=== PATIENT | male | born 1990 | race Caucasian/White ===

== ENCOUNTER 2019-11-30 15:56 | Emergency (ER) | payer OTHER, SELFPAY ==
--- NOTE | ~2019-11-30 | XR_ITS ---
EXAMINATION: XR finger 5th LT min 2V INDICATION: Left fifth finger pain, initial encounter TECHNIQUE: Three views of the left fifth finger are obtained. COMPARISON: None available FINDINGS: There is subtle irregularity at the palmar base of the fifth middle phalanx. Subtle heterot opic ossification projects at the palmar aspect of the head of the fifth proximal phalanx. There is m ild dorsal subluxation of the fifth middle phalanx with respect to the proximal phalanx. A subtle swa n-neck deformity is noted. There is soft tissue swelling of the fifth finger IMPRESSION: 1. Findings consistent with volar plate avulsion fracture of the fifth middle phalanx. Reviewed, dictated and finalized at location A. IMPRESSION: 1. Findings consistent with volar plate avulsion fracture of the fifth middle p halanx.
[2019-11-30 16:02] VITALS: BP 156/91; PULSE 105; RESP 18; TEMP 36.1; O2SAT 98
--- NOTE | 2019-11-30 16:20 | ED.UPPEXIN ---
HPI - Extremity Injury (Upper) General Chief Complaint: Extremity Injury, Upper Stated Complaint: left pinky injury Time Seen by Provider: 11/30/19 16:06 Source: patient History of Present Illness HPI narrative: Left fifth finger deformity while trying to manage a tire at work. Patient denies other injuries. Related Data Home Medications Medication Instructions Recorded Confirmed No Home Medications 11/30/19 11/30/19 Allergies Allergy/AdvReac Type Severity Reaction Status Date / Time No Known Allergies Allergy Verified 11/30/19 16:01 Review of Systems Review of Systems: Narrative: CONSTITUTIONAL: Denies fever, chills, or sweats. EYES: Denies visual changes, redness, or discharge. ENT: Denies rhinorrhea, congestion, sore throat, or otalgia. CARDIOVASCULAR: Denies chest pain, palpitations, or edema. RESPIRATORY: Denies cough or dyspnea. GASTROINTESTINAL: Denies abdominal pain, nausea, vomiting, or diarrhea. GENITOURINARY: Denies dysuria or hematuria. SKIN: Denies rash or itching. MUSCULOSKELETAL: Denies back pain, joint pain, or myalgia. NEUROLOGIC: Denies headache, numbness, or weakness. PSYCHIATRIC: Denies anxiety or depression. PMFSH Social History Social History Gender identity (if verbalized by the patient): Male Exam Narrative: Exam Narrative: General appearance: Well-developed, well-nourished Skin: Normal color Head: Normocephalic, nontraumatic Chest and respiratory: Airway patent, no respiratory distress, no accessory muscle use Heart: Regular rate/rhythm Vascular: Normal peripheral pulses, normal capillary refill. Musculoskeletal: Normal range of motion, nontender back, left fifth finger showed deformity, looks like dislocation. I was able to reduce it in 10 seconds. Neurologic: Alert and oriented ?3, [employer] is normal as tested, no gross motor deficit Course Course Emergency Course: Improved Vital Signs Vital signs: Vital Signs Temperature 36.1 C L 11/30/19 16:02 Pulse Rate 105 H 11/30/19 16:02 Respiratory Rate 18 11/30/19 16:02 Blood Pressure 156/91 H 11/30/19 16:02 Pulse Oximetry 98 11/30/19 16:02 Temperature 36.1 C L 11/30/19 16:02 Pulse Rate 105 H 11/30/19 16:02 Respiratory Rate 18 11/30/19 16:02 Blood Pressure 156/91 H 11/30/19 16:02 Pulse Oximetry 98 11/30/19 16:02 Procedures Orthopedic Joint Reduction Joint #1: Orthopedic Joint Reduction Date: 11/30/19 Orthopedic Joint Reduction Time: 16:24 Time Out Performed: Yes (1 minute) Side: left Joint Reduction Location: other (Fifth finger) Analgesia: none Pre-Procedure Neuro Vascular Exam: normal Local Anesthesia: none Technique used: traction/counter-traction Post-reduction neuro exam: intact and no change Post-reduction vascular: intact and no change Post Reduction X-Ray Obtained: Yes Post Reduction X-Ray Results: reduced Splint Applied: Yes Patient Tolerated Procedure: well Additional Comments: I did reduce the dislocated finger prior to x-ray.. My plan to get x-ray after reduction and to make sure there is no associated fracture. MDM - Extremity Injury (Upper) MDM Narrative Medical decision making narrative: Dislocated left fifth finger Critical Care Time Critical Care Time Critical Care Time: No Discharge Plan Discharge Clinical Impression: Dislocated finger Qualifiers: Encounter type: initial encounter Qualified Code(s): S63.259A - Unspecified dislocation of unspecified finger, initial encounter Avulsion fracture of middle phalanx of finger Qualifiers: E
[2019-11-30 17:26] VITALS: BP 162/104; PULSE 75; RESP 18; O2SAT 97
== END 2019-11-30 17:25 | disposition home or self-care (01) ==
PROVIDERS: Emergency Provider Emergency Medicine
DX: S63.257A Unspecified dislocation of left little finger, initial encounter (principal); X50.0XXA Overexertion from strenuous movement or load, initial encounter
CPT/HCPCS: 26770; 73140; 99285